=== PATIENT | female | born 1980 | race Caucasian/White ===

== ENCOUNTER → 2017-04-29 | Outpatient (CLI) | payer MEDICARE, OTHER ==
[~2017-04-29] MED LIST: ALBUTEROL17 GM INH; HCTZ PO; HYDROCODON-ACE1 EAC7 PO
--- NOTE | ~2017-04-29 | CR97 ---
[facility] A Service of [facility] RADIOLOGY TEXT RESULTS PATIENT: VARINDER TATUM LOCATION: [facility] : 78 UNIT #: [id number] AGE: [address]: Meir Wilcox III, MD SEX: F ORDER DR: [id number] [place], [place] [address] [id number] O MR#: [id number] Acc #: [id number] NAME: VARINDER TATUM : 1980 SEX: F STUDY DATE/TIME: 04/29/2017 9:08 UNIT: [facility] ROOM: STUDY DESCRIPTION: CR Esophagram Attending Physician: Meir Wilcox III, M.D. Referring Physician: Meir Wilcox III, M.D. Ordering Physician: Meir Wilcox III, M.D. Primary Care Physician: Alex White Jr., A.P.R.N. MEDICAL IMAGING REPORT This report is preliminary unless electronic signature is present EXAM Esophagram. HISTORY Gastric Lap-Band surgery pending. Evaluate for esophageal anomalies prior to surgery. The patient is asymptomatic. TECHNIQUE Thin liquid barium was used to evaluate the esophagus. A total of 16 overhead spot films were obtained with a fluoroscopy time 0.4 minutes. FINDINGS The swallowing mechanism is mechanism is normal. The esophagus shows no evidence of stricture, filling defect, or mucosal irregularity. No hiatal hernia is seen. The configuration of the gastroesophageal junction is unremarkable. IMPRESSION Normal. Dictated by... Kyree Chapa M.D. THIS IS AN ELECTRONICALLY VERIFIED REPORT Kyree Chapa M.D. at 04/29/2017 4:42 PM RLF/pauline TD: 04/29/2017 14:57 JOB #: [id number] MEDICAL IMAGING REPORT [facility] A Service of [facility] RADIOLOGY TEXT RESULTS PATIENT: VARINDER TATUM LOCATION: [facility] : 79 UNIT #: [id number] AGE: [address]: Meir Wilcox III, MD SEX: F ORDER DR: Page 1 of 1 COPY
--- NOTE | ~2017-04-29 | CR63 ---
[facility] A Service of [facility] & [facility] RADIOLOGY TEXT RESULTS PATIENT: VARINDER TATUM LOCATION: [facility] : 79 UNIT #: [id number] AGE: [address]: Meir Wilcox III, MD SEX: F ORDER DR: [id number] [facility] [address] [place], [place] [address] [id number] O MR#: [id number] Acc #: [id number] NAME: VARINDER TATUM : 1980 SEX: F STUDY DATE/TIME: 04/29/2017 8:31 UNIT: [facility] ROOM: STUDY DESCRIPTION: CR Chest 2 View Attending Physician: Meir Wilcox III, M.D. Referring Physician: Meir Wilcox III, M.D. Ordering Physician: Meir Wilcox III, M.D. Primary Care Physician: Alex White Jr., A.P.R.N. MEDICAL IMAGING REPORT This report is preliminary unless electronic signature is present EXAM Chest PA and lateral, 04/29/2017 HISTORY Morbid obesity, preop laparoscopic gastric banding. Benign essential hypertension. FINDINGS PA and lateral examination of the chest upright shows a good expansion of the parenchyma with a normal distribution of the pulmonary vascularity. There is no indication of congestion, effusion, infiltrate, tumor, or nodular density. The pleural reflections and diaphragmatic contours are normal. The cardiac silhouette and mediastinal anatomy is within normal limits. IMPRESSION Normal chest. Dictated by... Tucker Angelo M.D. THIS IS AN ELECTRONICALLY VERIFIED REPORT Tucker Angelo M.D. at 04/29/2017 4:53 PM TIKA/varun TD: 04/29/2017 12:02 JOB #: [id number] MEDICAL IMAGING REPORT Page 1 of 1 COPY
--- NOTE | ~2017-04-29 | EKG ---
PATIENT: VARINDER TATUM UNIT #: [id number] Ventricular Rate: 61 BPM Atrial Rate: 61 BPM P-R Interval: 156 ms QRS Duration: 86 ms Q-T Interval: 418 ms QTC Calculation(Bezet): 420 ms P Grapevine: 42 degrees Calculated R Grapevine: 45 degrees Calculated T Grapevine: 36 degrees Diagnosis Line: Normal sinus rhythm with sinus arrhythmia Diagnosis Line: Normal ECG Diagnosis Line: No previous ECGs available Diagnosis Line: Confirmed by RUDY IQBAL MD ([id number]) on 05/01/2017 Diagnosis Line: 2:47:57 PM INTERPRETING MD: RASHEED KHAN
[2017-04-29 09:28] LABS: HEMATOCRIT 40.9 % (35.0-45.0); HEMOGLOBIN 13.8 gm/dL (12.0-16.0); MEAN CELL VOLUME 94.8 FL (83-96); MEAN CORPUSCULAR HGB CONC 33.8 g/dL (30-36); MEAN PLATELET VOLUME 8.3 FL (6.5-11.5); RED BLOOD COUNT 4.32 X10e (3.90-5.30); RED CELL DISTRIBUTION WIDTH 12.5 % (11.0-15.5); WHITE BLOOD COUNT 8.5 X10e3 (4.0-10.5)
[2017-04-29 10:40] LABS: BILIRUBIN,TOTAL 0.5 mg/dL (0.2-2.0); CALCIUM SERUM 9.1 mg/dL (8.4-10.2); CREATININE SERUM 0.8 mg/dL (0.6-1.4); GLOM FILT RATE Estimated 94.3 mL/min (>60); POTASSIUM 4.6 mmol/L (3.5-5.1); PROTEIN TOTAL SERUM 6.9 g/dL (6.0-8.3)
== END | disposition home or self-care (01) ==
LOC: CRAD 07:53 → CAMB 09:30
PROVIDERS: Surgery
DX: Z01.818 Encounter for other preprocedural examination (principal); E66.01 Morbid (severe) obesity due to excess calories
CPT/HCPCS: 36415; 71020; 74220; 80053; 80061; 84443; 85027; 93005

== ENCOUNTER → 2017-05-11 | Day surgery (SDC) | payer MEDICARE, OTHER ==
--- NOTE | ~2017-05-11 | CR7 ---
[facility] A Service of [facility] & [facility] RADIOLOGY TEXT RESULTS PATIENT: VARINDER TATUM LOCATION: [facility] : 79 UNIT #: [id number] AGE: [address]: Meir Wilcox III, MD SEX: F ORDER DR: [id number] [facility] [address] [place], [place] [address] [id number] O MR#: [id number] Acc #: [id number] NAME: VARINDER TATUM : 1980 SEX: F STUDY DATE/TIME: 05/11/2017 11:34 UNIT: [facility] ROOM: STUDY DESCRIPTION: CR Abdomen Single AP View Attending Physician: Meir Wilcox III, M.D. Ordering Physician: Meir Wilcox III, M.D. Primary Care Physician: Haley Cash A.P.R.N. MEDICAL IMAGING REPORT This report is preliminary unless electronic signature is present EXAM Abdomen 1-view ,05/11/2017 1134 hours. HISTORY Abdominal pain, postop lap-band placement today, morbid obesity. COMPARISON Preop esophagram, 04/29/2017. FINDINGS Single view of the abdomen which is unlabeled as to position. This is likely a supine film. There is lap-band present overlying the left T11 costovertebral articulation oriented at 48 degrees from vertical. Radiopaque tubing courses inferiorly. A port is not included in the field of view. Bowel gas pattern is unremarkable. IMPRESSION Limited film demonstrates a new lap band overlying the left T11 costovertebral articulation oriented at 48 degrees from vertical. Radiopaque tubing courses inferiorly and leftward. The port is not included in the field of view. Dictated by... Rupal León M.D. THIS IS AN ELECTRONICALLY VERIFIED REPORT Rupal León M.D. at 05/11/2017 2:31 PM KOBI/jorge TD: 05/11/2017 13:38 JOB #: [id number] MEDICAL IMAGING REPORT [facility] A Service of [facility] & [facility] RADIOLOGY TEXT RESULTS PATIENT: VARINDER TATUM LOCATION: [facility] #: [id number] : 78 UNIT #: [id number] AGE: [address]: Meir Wilcox III, MD SEX: F ORDER DR: Page 1 of 1 COPY
--- NOTE | ~2017-05-11 | OR ---
Unit #: [id number] #: [id number] Patient: VARINDER TATUM [id number] [facility] [address] [place] [address]. [place], [place] [address] [id number] O MR#: [id number] NAME: VARINDER TATUM ROOM: Date of Procedure: 05/11/2017 Admission Date: 05/11/2017 Surgeon: Meir Wilcox III, M.D. : 1980 Attending Physician: Meir Wilcox III, M.D. Primary Care Physician: Haley Cash A.P.R.N. PROCEDURE OPERATIVE NOTE PREOPERATIVE DIAGNOSIS Chronic morbid obesity. POSTOPERATIVE DIAGNOSIS Chronic morbid obesity. SECONDARY DIAGNOSES Anterior paraesophageal hernia. PROCEDURE PERFORMED Laparoscopic adjusted gastric banding (AP standard with low profile port) and laparoscopic paraesophageal hernia repair. SURGEON Dr. Meir Wilcox PHYSICAL SCIENCES PROFESSOR Dr. Robert East SPECIMENS None. COMPLICATIONS None apparent. ESTIMATED BLOOD LOSS Minimal. ANESTHESIA General endotracheal tube anesthesia. INDICATIONS FOR PROCEDURE This is a 36-year-old lady who has chronic morbid obesity with a BMI of 49 and associated comorbidities of hypertension. She has been through the bariatric program at [facility] and understands the risks and benefits of the procedure. DESCRIPTION OF PROCEDURE After consent was obtained, including the risks and benefits of slippage, erosion, port dysfunction, and possible failure of weight loss due to noncompliance, the patient was taken to the operating room and placed in the supine position. General anesthetic was administered and the abdomen Unit #: [id number] #: [id number] Patient: VARINDER TATUM was prepped and draped in standard surgical fashion. I began by making a 2 cm incision just above and to the left of the umbilicus. I used a Visiport to enter the peritoneal cavity without any difficulty. C02 pneumoperitoneum was then established. Next, I placed a 5 mm port in the right upper quadrant, a 5 mm Tatianna liver retractor in the subxiphoid region to provide exposure of the gastroesophageal junction. Next, a 10 mm port was placed in the left upper quadrant and a 5 mm port was placed in the left lateral subcostal region. I began by performing an examination of the GE junction to evaluate for a hiatal hernia. We then scored the peritoneal attachments overlying the angle of His. I then opened up the clear space in the gastrohepatic ligament, and then using 2 blunt graspers, I identified the small fat pad crossing over the right crura. I swept the fat anterior to the crura off the crura and using the pars flaccida, I created a retrogastric tunnel where the blunt grasper exited at the angle of His. Once I had made this tunnel safely, I then inserted an Allergan AP band into the abdominal cavity. This adjustable gastric band was then place around the upper part of the stomach and fastened and buckled anteriorly. We then tacked the lateral fundus over the band to the proximal pouch with 2 interrupted 0 Ethibond sutures. I then used a third stitch to imbricate the excess anterior stomach by going from the lesser curvature up towards where the last stitch was placed. We then had excellent hemostasis. I removed the Tatianna liver retractor. We then removed the port tubing through the initial port incision. The rest of the ports were removed, and the pneumoperitoneum was released. I then left a small tail on the tubing. We then attached the port to the excess band tubing. We placed a piece of Prolene mesh along the back side of the port and used a Prolene stitch to anchor this mesh in place. We then trimmed the excess mesh so that just a small footprint of mesh was in place behind the port. I then inserted the tubing back into the abdominal cavity, and we placed the port into a small pocket that was made just inferior to where our initial port incision was made. The mesh was in direct contact with the fascia, and this will scar in place to hold the port in place. We then injected all the port sites with 0.25% plain Marcaine, and I reapproximated the skin edges with interrupted 4-0 Vicryl subcuticular sutures. Steri-strips were then applied. The patient tolerated the procedure without any problems and returned to the recovery room in stable condition. ADDENDUM After exposure of the GE junction, the patient was noted to have a moderate size paraesophageal hernia with a posterior component. I scored the phrenoesophageal ligament and followed this down along the right crura to identify both the crura posteriorly. Once I had this dissected out, I reapproximated the posterior defect with an interrupted 0 Ethibond hckjpr-ry-epmuy suture and I placed a second interrupted 0 Ethibond ehvdbq-rx-xqyhl suture anteriorly as well. This provided good reapproximation of the hiatus. I then proceeded with the case as listed above. Dictated by... Meir Wilcox III, M.D. Unit #: [id number] #: [id number] Patient: VARINDER TATUM KEN/rafaela TD: 05/12/2017 13:27 JOB #: [id number] PROCEDURE OPERATIVE NOTE Page 1 of 1 X Meir Wilcox III, MD PROCEDURE OPERATIVE NOTE
--- NOTE | ~2017-05-11 | OR ---
Unit #: [id number] #: [id number] Patient: VARINDER TATUM [id number] [facility] [address] [place], [place] [address] [id number] O MR#: [id number] NAME: VARINDER TATUM ROOM: Date of Procedure: 05/11/2017 Admission Date: 05/11/2017 Surgeon: Meir Wilcox III, M.D. : 1980 Attending Physician: Meir Wilcox III, M.D. Primary Care Physician: Haley Cash A.P.R.N. OPERATIVE REPORT PREOPERATIVE DIAGNOSIS Chronic morbid obesity. POSTOPERATIVE DIAGNOSIS Chronic morbid obesity. SECONDARY DIAGNOSES Anterior paraesophageal hernia. PROCEDURES PERFORMED Laparoscopic adjustable gastric banding (AP standard with low-profile port) and laparoscopic paraesophageal hernia repair. BOX ANNEALER Dr. Robert East. SPECIMENS None. COMPLICATIONS None apparent. ESTIMATED BLOOD LOSS Minimal. ANESTHESIA General endotracheal tube anesthesia. INDICATIONS FOR PROCEDURE This is a 36-year-old lady, who has chronic morbid obesity with a BMI of 49 and associated comorbidities of hypertension. She has been through the bariatric program at [facility] and understands the risks and benefits of the procedure. DESCRIPTION OF PROCEDURE After consent was obtained, including the risks and benefits of slippage, erosion, port dysfunction, and possible failure of weight loss due to noncompliance, the patient was taken to the operating room and placed in the supine position. General anesthetic was administered and the abdomen was prepped and draped in standard surgical fashion. I began by making a 2 cm incision just above and to the left of the Unit #: [id number] #: [id number] Patient: VARINDER TATUM umbilicus. I used a Visiport to enter the peritoneal cavity without any difficulty. C02 pneumoperitoneum was then established. Next, I placed a 5 mm port in the right upper quadrant, a 5 mm Tatianna liver retractor in the subxiphoid region to provide exposure of the gastroesophageal junction. Next, a 10 mm port was placed in the left upper quadrant and a 5 mm port was placed in the left lateral subcostal region. I began by performing an examination of the GE junction to evaluate for a hiatal hernia. We then scored the peritoneal attachments overlying the angle of His. I then opened up the clear space in the gastrohepatic ligament, and then using 2 blunt graspers, I identified the small fat pad crossing over the right crura. I swept the fat anterior to the crura off the crura and using the pars flaccida, I created a retrogastric tunnel where the blunt grasper exited at the angle of His. Once I had made this tunnel safely, I then inserted an Allergan AP band into the abdominal cavity. This adjustable gastric band was then place around the upper part of the stomach and fastened and buckled anteriorly. We then tacked the lateral fundus over the band to the proximal pouch with 2 interrupted 0 Ethibond sutures. I then used a third stitch to imbricate the excess anterior stomach by going from the lesser curvature up towards where the last stitch was placed. We then had excellent hemostasis. I removed the Tatianna liver retractor. We then removed the port tubing through the initial port incision. The rest of the ports were removed, and the pneumoperitoneum was released. I then left a small tail on the tubing. We then attached the port to the excess band tubing. We placed a piece of Prolene mesh along the back side of the port and used a Prolene stitch to anchor this mesh in place. We then trimmed the excess mesh so that just a small footprint of mesh was in place behind the port. I then inserted the tubing back into the abdominal cavity, and we placed the port into a small pocket that was made just inferior to where our initial port incision was made. The mesh was in direct contact with the fascia, and this will scar in place to hold the port in place. We then injected all the port sites with 0.25% plain Marcaine, and I reapproximated the skin edges with interrupted 4-0 Vicryl subcuticular sutures. Steri-strips were then applied. The patient tolerated the procedure without any problems and returned to the recovery room in stable condition. ADDENDUM After exposure of the GE junction, the patient was noted to have a moderate size paraesophageal hernia with a posterior component. I scored the phrenoesophageal ligament and followed this down along the right crura to identify both the crura posteriorly. Once, I had this dissected out, I reapproximated the posterior defect with an interrupted 0 Ethibond omeege-fc-zdadn suture and I placed a second interrupted 0 Ethibond ttkdcf-ee-oqono suture anteriorly as well. This provided good reapproximation of the hiatus. I then proceeded with the case as listed above. Dictated by... Meir Wilcox III, M.D. VCL/rodriguez TD: 05/12/2017 10:48 JOB #: [id number] Unit #: [id number] #: [id number] Patient: VARINDER TATUM OPERATIVE REPORT Page 1 of 1 X Meir Wilcox III, MD PROCEDURE OPERATIVE NOTE
== END | disposition home or self-care (01) ==
LOC: CSUR 08:48
DX: E66.01 Morbid (severe) obesity due to excess calories (principal); Z68.42 Body mass index [BMI] 45.0-49.9, adult; K44.9 Diaphragmatic hernia without obstruction or gangrene; J45.909 Unspecified asthma, uncomplicated; M19.90 Unspecified osteoarthritis, unspecified site; I10 Essential (primary) hypertension; M54.9 Dorsalgia, unspecified; F41.9 Anxiety disorder, unspecified; F32.9 Major depressive disorder, single episode, unspecified; G43.909 Migraine, unspecified, not intractable, without status migrainosus; A64 Unspecified sexually transmitted disease; Z79.899 Other long term (current) drug therapy; Z82.3 Family history of stroke; Z82.49 Family history of ischemic heart disease and other diseases of the circulatory system; Z83.2 Family history of diseases of the blood and blood-forming organs and certain disorders involving the immune mechanism; Z82.5 Family history of asthma and other chronic lower respiratory diseases; Z81.8 Family history of other mental and behavioral disorders; Z81.1 Family history of alcohol abuse and dependence; Z90.49 Acquired absence of other specified parts of digestive tract
CPT/HCPCS: 74000; 84703; C1781; J0131; J0330; J0690; J1100; J1650; J1885; J2250; J2405; J2710; J3010